=== PATIENT | female | born 1970 | race Caucasian/White ===

== ENCOUNTER 2022-02-25 11:15 | Outpatient (REF) | payer OTHER, SELFPAY ==
--- NOTE | ~2022-02-25 | XR_ITS ---
EXAMINATION: XR BILATERAL HIPS WITH AP PELVIS CLINICAL INFORMATION: Myalgias COMPARISON: None TECHNIQUE: AP view of the pelvis and single views of each hip were obtained. FINDINGS: The pelvic image demonstrate some probable early degenerative changes in the lower lumbar sacral spine. Mild sclerosis at the level of the pubic bone. Left SI joint is patent. The right SI joint is felt to be patent detailed 2 views of the right hip show the femoral head contour to be smooth. There is no bony erosion or osteopenia. Mild degenerative change likely in the region of the greater trochanter. Detailed 2 views of the left hip again demonstrate the femoral head contour to be smooth. Joint spaces fairly well-preserved though there may be some inferior joint space loss. Degeneration along the greater trochanter is noted. XR/XR hip BI w PEL1V IMPRESSION: No acute findings. Mild degenerative changes are noted
--- NOTE | ~2022-02-25 | XR_ITS ---
EXAMINATION: XR RIBS, LEFT CLINICAL INFORMATION: Pain COMPARISON: None TECHNIQUE: 3 detailed imaging views of the left RIBS and single view chest FINDINGS: The chest film does not show pneumothorax or effusion. Left lung is grossly clear. The cardiac silhouette is felt to be within normal limits. 3 detailed views of the left ribs does not demonstrate fracture. The rib appearance is within normal limits. XR/XR ribs LT min 3V w CXR1V IMPRESSION: No acute finding.
== END 2022-02-25 11:16 | disposition home or self-care (01) ==
LOC: HO.HMGCX 11:15
PROVIDERS: PCP Family Medicine; Visit Provider Family Medicine
DX: R07.81 Pleurodynia (principal); M25.551 Pain in right hip; T74.91XA Unspecified adult maltreatment, confirmed, initial encounter; M79.18 Myalgia, other site
CPT/HCPCS: 71101; 73521

== ENCOUNTER 2022-02-26 12:31 | Emergency (ER) | payer OTHER, SELFPAY ==
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
[2022-02-26 13:09] VITALS: BP 124/87; PULSE 83; RESP 16; TEMP 36.5; O2SAT 99; BMI 25.7
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
== END 2022-02-26 16:58 | disposition home or self-care (01) ==
PROVIDERS: Emergency Provider Student in an Organized Health Care Education/Training Program; PCP Family Medicine
DX: S20.211A Contusion of right front wall of thorax, initial encounter (principal); S00.31XA Abrasion of nose, initial encounter; S30.1XXA Contusion of abdominal wall, initial encounter; S70.12XA Contusion of left thigh, initial encounter; S70.11XA Contusion of right thigh, initial encounter; S40.022A Contusion of left upper arm, initial encounter; S40.021A Contusion of right upper arm, initial encounter; Y04.2XXA Assault by strike against or bumped into by another person, initial encounter; R51.9 Headache, unspecified; Y93.9 Activity, unspecified; Y92.019 Unspecified place in single-family (private) house as the place of occurrence of the external cause; Y99.9 Unspecified external cause status
CPT/HCPCS: 70450; 71250; 99283; 99284

== ENCOUNTER 2023-07-29 09:50 | Outpatient (AMB) | payer OTHER, SELFPAY ==
--- NOTE | 2023-07-29 10:02 | MHC.PC.OV ---
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 Pt notes pain from neck to her elbows. She notes hx of R shoulder arthritis. Pt reports meloxicam has not helped at all for her. Pt reports anxiety has been high. Recently gotten fired from her job. Patient?had?establish?a?diagnosis?of?ADHD?and?I?had?started?her?on?her?medications.??There?were?some?concerns?regarding?discrepancies?in?her?refills?and?this?was?discontinued. Discussed?with?her?today?that?I?would?be?willing?to?prescribe?Adderall?ER?20?mg?daily?and?she?will?need?close?follow-up. 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 1. Little interest or pleasure in doing things: more than half the days 2. Feeling down, depressed, or hopeless: more than half the days 3. Trouble falling or staying asleep, or sleeping too much: several days 4. Feeling tired or having little energy: nearly every day 5. Poor appetite or overeating: more than half the days 6. Feeling bad about yourself - or that you are a failure or have let yourself or your family down: several days 7. Trouble concentrating on things, such as reading the newspaper or watching television: nearly every day 8. Moving or speaking so slowly that other people could have noticed. Or the opposite - being so fidgety or restless that you have been moving around a lot more than usual: not at all 9. Thoughts that you would be better off or of hurting yourself in some way: not at all Total score: 14 68245 - PHQ-9 Billing: Yes Source: Developed by Drs. Epifanio Gomez, Reena Willard, Federico Javier and colleagues, with an educational brendan from [employer]. Thrive Questionnaire Date Thrive assessed: 07/29/23 I am a: Patient What is your living situation today?: I have a steady place to live Within the past 12 months, did the food you bought not last and you didn't have the money to get more?: Never true Within the past 12 months, did you worry whether your food would run out before you got money to buy more?: Never true Do you have trouble paying for medicines?: No Do you have trouble getting transportation to medical appointments?: No Do you have trouble paying your heating and electricity bill?: No Do you have trouble taking care of your child, family member or friend?: No Do you have trouble with day-to-day activities such as bathing, preparing meals, shopping, managing finances, etc.?: No Are you currently unemployed and looking for a job?: No Are you interested in more education?: No Please select the resources that you would like help with: None Currently or been in a relationship where the following occur: no concerns reported AUDIT C Alcohol Use Questionnaire (AUDIT-C) 1. How often do you have a drink containing alcohol?: Monthly or less 2. How many drinks containing alcohol do you have on a typical day when you are drinking?: 1 or 2 3. How often do you have six or more drinks on one occasion?: Never Total Score: 1 CHERRY-7 AMB Questionnaire CHERRY-7 Date CHERRY - 7 assessed: 07/29/23 Feeling nervous, anxious, or on edge: 2 = More than half the days Not being able to stop or control worryin = More than half the days Worrying too much about different things: 2 = More than half the days Trouble relaxin = Several days Being so restless that it is hard to sit still: 1 = Several days Becoming easily annoyed or irritable: 2 = More than half the days Feeling afraid as if something awful might happen: 0 = Not at all Total CHERRY-7 score (0-4 normal; 5-9 mild; 10-14 moderate; 15-21 severe): 10 Source: Developed by Drs. Epifanio Gomez, Reena Willard, Federico Javier and colleagues, with an educational brendan from [employer]. CHERRY-7 Assessment Billing CHERRY-7 Assessment Tool: CHERRY-7 Assessment 85120 Review of Systems Const Denies chills, Denies fatigue, Denies fever(s), Denies headache(s) and Denies weakness ENT Denies dizziness and Denies headache(s) Card Denies dyspnea Resp Denies cough, Denies dyspnea, Denies wheezing and Denies other (shortness of breath) Musc Details: R shoulder pain Denies numbness and Denies tingling Neuro Denies dizziness, Denies headache(s), Denies numbness, Denies tingling and Denies weakness Psych Reports anxiety and Reports depression Endo Denies fatigue Aller/Immun Denies wheezing Physical exam (Primary Care) Vital Signs: Last Vital Signs Pulse 75 07/29/23 10:16 Resp 17 07/29/23 10:16 BP 104/58 L 07/29/23 10:16 Pulse Ox 96 07/29/23 10:16 Oxygen Delivery Method Room Air 07/29/23 10:16 BMI result Body Mass Index 31.2 Tobacco/Smoking Status: Tobacco use Status Tobacco use date assessed 07/29/23 07/29/23 10:24 Patient Tobacco Use Status Current everyday Tobacco 07/29/23 10:24 Tobacco use type Cigarette 07/29/23 10:24 e-Cigarette/Vaping Use Never Used 07/29/23 10:04 PHQ-9: PHQ-9 Score PHQ-9: Total score 14 07/29/23 10:24 Thrive Assessment: Date of Thrive Assessment Date Thrive assessed 07/29/23 07/29/23 10:24 Currently or been in a relationship where the following occur: no concerns reported Const General: well developed; No acute distress Nutritional Appearance: well nourished Orientation/consciousness: patient oriented x3 HENMT Head: Yes normocephalic and Yes atraumatic Eyes General: appearance normal, both eyes and all related structures Pupils: Equal, round and reactive pupils present EOM: EOMs intact bilaterally Resp Effort & Inspection: normal respiratory effort Neuro General: patient oriented x3 and gait normal Cranial nerves: Yes Equal, round and reactive pupils present Psych Affect: normal affect Assessment and Plan Assessment & Plan (1) Right shoulder pain: Code(s): M25.511 - Pain in right shoulder Plan: Chronic?and?worsening?right?shoulder?pain.??Patient?notes?that?she?does?have?a?history?of?some?right?shoulder?arthritis. Exam?appears?muscular?and?likely?some?recurrent?muscle?and?tendon?strain Ibuprofen?800?mg?3?times?a?day?and?she?can?also?use?some?intermittent?Tylenol Will?start?physical?therapy Check?x-ray If?not?improving?will?refer?to?ortho (2) ADHD: Code(s): F90.9 - Attention-deficit hyperactivity disorder, unspecified type Plan: Patient?had?establish?a?diagnosis?of?ADHD?and?I?had?started?her?on?her?medications.??There?were?some?concerns?regarding?discrepancies?in?her?refills?and?this?was?discontinued. Discussed?with?her?today?that?I?would?be?willing?to?prescribe?Adderall?ER?20?mg?daily?and?she?will?need?close?follow-up. She?had?been?on?rather?high?doses?of?Adderall?from?her?prior?provider.??Will?reiterate?the?patient?that?I?will?not?be?increasing?her?dose. (3) Depression with anxiety: Code(s): F41.8 - Other specified anxiety disorders Plan: She?has?been?off?bupropion?and?clonidine.??I?have?refilled?these Will?ask?the?nurse?navigator?to?help?connect?her?with?a?therapist Orders: Orders PT Evaluation and Treatment Today M25.511 - Pain in right shoulder XR shoulder LT min 2V Today M25.511 - Pain in right shoulder Referrals Nurse Navigator Referral F41.8 - Other specified anxiety disorders Medications: New prednisone 40 mg (2 x 20 mg) PO DAILY 10 tabs 0RF 5 days dextroamphetamine-amphetamine 20 mg ER (Adderall XR) [employer] Verified. Partial Fill upon patient request. 20 mg PO QAM 30 caps 0RF 30 days Changed From bupropion HCl 150 mg PO BID To bupropion HCl 150 mg PO BID 60 tabs 2RF 30 days From cyclobenzaprine 5 mg PO TID PRN 14 tabs 0RF muscle spasm To cyclobenzaprine 5 mg PO BEDTIME PRN 5 tabs 0RF muscle spasm 5 days From ibuprofen 600 mg PO Q8H PRN 20 tabs 0RF pain To ibuprofen 800 mg PO Q8H PRN 90 tabs 1RF pain 30 days From clonidine HCl 0.1 mg PO BEDTIME To clonidine HCl 0.1 mg PO Q8H 90 tabs 0RF 30 days Coding Level of Care Code Est Pt Level 4 (93660) Diagnoses Right shoulder pain M25.511 ADHD F90.9 Depression with anxiety F41.8 Additional Codes CHERRY-7 Assessment Billing - CHERRY-7 Assessment Tool: CHERRY-7 Assessment 64618 ([id number])
[2023-07-29 10:16] VITALS: BP 104/58; PULSE 75; RESP 17; O2SAT 96; BMI 31.2
== END 2023-07-29 11:19 | disposition home or self-care (01) ==
PROVIDERS: PCP Family Medicine; Visit Provider Family Medicine
DX: M25.511 Pain in right shoulder (principal); F90.9 Attention-deficit hyperactivity disorder, unspecified type; F41.8 Other specified anxiety disorders
CPT/HCPCS: 99214

== ENCOUNTER 2023-08-05 10:26 | Outpatient (REF) | payer OTHER, SELFPAY ==
--- NOTE | ~2023-08-05 | XR_ITS ---
EXAMINATION: XR SHOULDER, RIGHT CLINICAL INFORMATION: Right shoulder pain. COMPARISON: None available. TECHNIQUE: AP external rotation, Grashey, scapular Y, and axillary views of the right shoulder. FINDINGS: Bulky calcification superior lateral aspect of the right humeral head. No fracture or dislocation. Visualized lung is clear. XR/XR shoulder RT min 2V IMPRESSION: Calcific tendinopathy right shoulder.
== END 2023-08-05 10:27 | disposition home or self-care (01) ==
LOC: HO.HMGCX 10:26
PROVIDERS: PCP Family Medicine; Visit Provider Family Medicine
DX: M25.511 Pain in right shoulder (principal)
CPT/HCPCS: 73030

== ENCOUNTER 2023-08-16 11:00 | Outpatient (RCR) | payer OTHER, SELFPAY ==
--- NOTE | 2023-08-09 14:35 | MHC.PT.EP ---
[facility] [place] [facility] [place] [facility] [place] [facility] [address] Elisa Miller [address] [phone] F: [phone] F: [phone] F: [phone] F: [phone] Physical Therapy Plan of Care Date of Evaluation: 08/09/23 Date of Surgery: n/a Diagnosis: pain in R shoulder Assessment: Patient is a 52 year old female presenting to PT with complaints of pain in her R shoulder. Pt reports onset of pain began about 20 years ago due to insidious onset. She presents today with impairments in pain, ROM, shoulder strength, posture. Pt's current occupation is none, with baseline physical activities including reaching, lifting, ADLs. Pt expresses correction goal of reducing pain, and is motivated to work towards this in PT. Clinical presentation today is most consistent with signs and sx associated with R shoulder pain and pt will benefit from skilled PT 2 week x 4 weeks to address the following problems and impairments noted upon evaluation: pain, ROM, shoulder strength, posture. These problems limit the patient with the following functional activities: reaching, lifting, ADLs. The prescribed treatment plan of care is medically necessary. Co-morbidities of none were identified and taken into considerations of plan of care. Pt was educated on HEP, role of PT, prognosis, POC. Frequency and Duration: The patient will be seen 2 x week x 4 weeks Short Term Goals: Pt will demonstrate improved R shoulder ROM equal B in 2 weeks. Pt will demonstrate improved R shoulder MMT strength by 1/3 grade in 2 weeks. Pt will demonstrate improved postural awareness by sitting with biomechanically correct posture without cues throughout session to improve overall postural function in 2 weeks. 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 Pt will demonstrate ability to complete ADLs including dressing with min to no pain in 4 weeks for return to PLOF. 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 Treatment Plan: Modalities to reduce pain, spasms and effusion. Manual therapy to restore motion and function. Therapeutic exercise to improve strength and flexibility. Neuromuscular re-education for posture and balance. Therapeutic activities to return to functional activities of daily living. Electronically signed by: Chacha Crawford, PT, DPT, ATC Please sign and return to therapist. Thank you for your referral.
--- NOTE | 2023-09-22 08:22 | MHC.PT.DC ---
[facility] [place] Office [place] Office [place] Office [address] Elisa Miller [address] [facility] [phone] F: [phone] F: [phone] F: [phone] F: [phone] Physical Therapy Discharge Report Diagnosis: pain in R shoulder Date of Surgery: n/a Date of Evaluation: 08/09/23 Date of Discharge: 09/22/23 Treatments to Date: 2 Cancellations to Date: 0 No Shows to Date: 1 Discharge Status: Patient Elected to Stop Visit Non-compliance Discharge Summary: Pt no showed her last appointment and has not reached out in >30 days and therefore to be d/c per policy. Electronically signed by: Chacha Crawford, PT, DPT, ATC Please sign and return to therapist. Thank you for your referral.
== END 2023-09-22 08:22 | disposition home or self-care (01) ==
LOC: HO.PTCHIC 11:00
PROVIDERS: PCP Family Medicine; Visit Provider Family Medicine
DX: M25.511 Pain in right shoulder (principal)
CPT/HCPCS: 97110; 97161

== ENCOUNTER 2023-09-06 11:42 | Outpatient (AMB) | payer OTHER, SELFPAY ==
[2023-09-06 12:04] VITALS: BP 120/76; PULSE 87; O2SAT 99; BMI 30.4
--- NOTE | 2023-09-06 12:04 | MHC.PC.OV ---
Vital Signs 09/06/23 12:04 Height 5 ft 4 in Weight 177 lb 2 oz BMI 30.4 BP 120/76 Blood Pressure Location Lt brachial Position Sitting Pulse 87 Pulse Source Pulse Oximeter Pulse Oximetry (%) 99 Oxygen Delivery Method Room Air Intake Visit Reasons: Annual exam Intake Note: Patient is here for her physical, and right shoulder pain, on/off for years. Allergies No Known Allergies Allergy (Verified 09/06/23 12:09) Tobacco use date assessed: 09/06/23 Dental Screening Dental Screen Date: 09/06/23 Did you have a dental visit in the last 12 months?: No Did you have a dental problem in the last 6 months where you did not have access to dental care?: No Was dental information given to patient?: Patient has dentist HPI Annual exam HPI Details 52 y/o female presents for an extended exam with f/u labs and health maintenance. No recent labs to review. Pt reports she is post menopausal and has not had a bone density test yet. PFSH Medical History Depression Anxiety ADHD Social History Housing: Apartment Patient Tobacco Use Status: Current everyday Tobacco user Tobacco use type: Cigarette Cigarettes Per Day: 5 e-Cigarette/Vaping Use: Never Used Second Hand Smoke Exposure: No service: No Current occupational status: unemployed Current occupational exposures/hazards: No Cognitive needs: No Hearing needs: No Vision needs: No Questionnaire Thrive Questionnaire Date Thrive assessed: 07/29/23 CHERRY-7 AMB Questionnaire CHERRY-7 Date CHERRY - 7 assessed: 07/29/23 Source: Developed by Drs. Epifanio Gomez, Reena Willard, Federico Javier and colleagues, with an educational brendan from [employer]. Review of Systems Const Denies chills, Denies fatigue, Denies fever(s), Denies headache(s) and Denies weakness Eyes Denies change in vision ENT Denies dizziness, Denies headache(s), Denies hearing loss, Denies nasal congestion, Denies sinus pain, Denies sinus pressure and Denies sore throat Card Denies chest pain, Denies lightheadedness, Denies dyspnea and Denies other (palpitations) Resp Denies cough, Denies dyspnea and Denies wheezing GI Denies abdominal pain, Denies melena, Denies hematochezia, Denies change in bowel habits, Denies dyspepsia and Denies nausea Denies hematuria and Denies dysuria Musc Denies abnormal gait, Denies myalgias, Denies arthralgias, Denies numbness and Denies tingling Skin/Breast Denies rash, Denies unusual bruising and Denies wounds Neuro Denies abnormal gait, Denies dizziness, Denies headache(s), Denies memory loss, Denies numbness, Denies Sensory deficit (Neuro), Denies tingling and Denies weakness Psych Denies anxiety, Denies depression and Denies memory loss Endo Denies cold intolerance, Denies fatigue, Denies heat intolerance, Denies polydipsia and Denies polyuria Saurav/Lymph Denies easy bleeding and Denies easy bruising Aller/Immun Denies wheezing Physical exam (Primary Care) Vital Signs: Last Vital Signs Pulse 87 09/06/23 12:04 BP 120/76 09/06/23 12:04 Pulse Ox 99 09/06/23 12:04 Oxygen Delivery Method Room Air 09/06/23 12:04 BMI result Body Mass Index 30.4 Tobacco/Smoking Status: Tobacco use Status Tobacco use date assessed 09/06/23 09/06/23 12:14 Patient Tobacco Use Status Current everyday Tobacco 09/06/23 12:14 Tobacco use type Cigarette 09/06/23 12:14 e-Cigarette/Vaping Use Never Used 09/06/23 12:14 Thrive Assessment: Date of Thrive Assessment Date Thrive assessed 07/29/23 09/06/23 12:14 Const General: no acute distress, well developed, alert and awake Nutritional Appearance: well nourished Orientation/consciousness: patient oriented x3 HENMT Head: Yes normocephalic and Yes atraumatic Ears: hearing grossly normal bilaterally and TM's normal bilaterally General nose exam: Normal external nose present and Normal nares present Mouth: Normal oral and palatal mucosa present and moist mucous membranes Teeth and gingiva: dentition normal Throat: Yes posterior oropharynx normal Eyes General: appearance normal, both eyes and all related structures Pupils: Equal, round and reactive pupils present and Pupil accommodation reflex normal EOM: EOMs intact bilaterally Neck Neck: Yes normal visual inspection, Yes no lymphadenopathy and Yes trachea midline Thyroid: Thyroid normal Carotids: no bruits Lymphatic: no lymphadenopathy noted Chest Chest palpation & inspection: normal inspection of the chest Resp Effort & Inspection: normal respiratory effort Auscultation: clear to auscultation bilaterally Cardio Rate: regular rate Rhythm: regular rhythm Heart sounds: S1 normal heart sound present, S2 normal heart sound present, no gallops, no murmurs and no rubs Bruits: no abdominal aortic bruits and no carotid bruits GI Palpation (GI): No Abdominal aortic bruit present, Soft to palpation, nontender, No hepatosplenomegaly present and No Rebound tenderness present Auscultation: normal bowel sounds General: Yes no CVA tenderness Back/Spine/Pelvis Back: no CVA tenderness Cervical Spine: cervical ROM normal and No Cervical spine tenderness Thoracic/Lumbar Spine: thoraco-lumbar ROM normal, No pain with thoraco-lumbar ROM, No thoracic spinal tenderness and No lumbar spinal tenderness Skin Lesions: no lesions Rashes: no rashes Trauma: no lacerations or abrasions Wounds: no wounds Nails: normal Neuro General: patient oriented x3 Cranial nerves: Yes Equal, round and reactive pupils present Cognition (Neuro): normal cognition Gait exam (Neuro): Normal gait present Motor exam (neuro): 5/5 motor strength present throughout Sensory Exam: No Sensory deficit (Neuro) Deep tendon reflexes (DTR's): Right patellar reflex intensity grade: 2+ and Left patellar reflex intensity grade: 2+ Extrem General: Yes normal to inspection and No edema Psych Appearance: grossly normal Affect: normal affect Attitude: cooperative Thought process: Normal thought process present Assessment and Plan Assessment & Plan (1) ADHD: Code(s): F90.9 - Attention-deficit hyperactivity disorder, unspecified type Plan: Had?been?on?Adderall?and?we?resumed?this. However,?she?notes?that?her?pharmacy?said?she?needs?a?prior?authorization.??Will?have?medical?surgical dental assistant?look?into?this. (2) Right shoulder pain: Code(s): M25.511 - Pain in right shoulder Plan: Right?shoulder?pain?and?x-ray?shows?calcific?tendinosis She?has?significantly?decreased?range?of?motion?with?only?90?degrees?of?abduction?and?can?not?raise?further?with?active?or?passive?ROM Referred?to?Ortho (3) Screening for colon cancer: Code(s): Z12.11 - Encounter for screening for malignant neoplasm of colon Plan: Colonoscopy?age?45?at?[facility] – [place] Requesting?report (4) Breast cancer screening by mammogram: Code(s): Z12.31 - Encounter for screening mammogram for malignant neoplasm of breast Plan: Last?mammogram?more?than?2?years?ago. Ordered?mammogram No?family?history?of?breast?cancer?and?patient?would?like?to?have?screening?about?every?other?year. (5) Screening for cervical cancer: Code(s): Z12.4 - Encounter for screening for malignant neoplasm of cervix Plan: referred to [facility] (6) Obesity (BMI 30.0-34.9): Code(s): E66.9 - Obesity, unspecified Plan: Patient?would?like?to?try?Webrandonvjosh. Ordered (7) Normal physical exam: Code(s): Z00.00 - Encounter for general adult medical examination without abnormal findings Plan: 52-year-old?female?presents?for?an?extended?exam Orders: Orders Lipid Panel Today Z00.00 - Encounter for general adult medical examination without abnormal findings UA and rflx microscopic Today Z00.00 - Encounter for general adult medical examination without abnormal findings TSH reflex Free T4 Today Z00.00 - Encounter for general adult medical examination without abnormal findings MM tomosynthesis screening BI Today F90.9 - Attention-deficit hyperactivity disorder, unspecified type, Z12.31 - Encounter for screening mammogram for malignant neoplasm of breast Comprehensive [place]. Panel Fast Today Z00.00 - Encounter for general adult medical examination without abnormal findings Complete Blood Count Auto Diff Today Z00.00 - Encounter for general adult medical examination without abnormal findings Microalbumin, Random (w Creat) Today I10 - Essential (primary) hypertension Drug Screen Urine Today F90.9 - Attention-deficit hyperactivity disorder, unspecified type Referrals Orthopedics Referral M25.511 - Pain in right shoulder, M75.31 - Calcific tendinitis of right shoulder [facility] Referral Z12.4 - Encounter for screening for malignant neoplasm of cervix Medications: New semaglutide (weight loss) (Nathaly) administer weeks 1 through 4 of therapy 0.25 mg (0.5 mL) subcut QWEEK 2 mL 2RF 28 days E66.9 - Obesity, unspecified Coding Level of Care Code Est Pt Level 4 (87368) Diagnoses ADHD F90.9 Right shoulder pain M25.511 Screening for colon cancer Z12.11 Breast cancer screening by mammogram Z12.31 Screening for cervical cancer Z12.4 Obesity (BMI 30.0-34.9) E66.9 Normal physical exam Z00.00
== END 2023-09-06 13:04 | disposition home or self-care (01) ==
PROVIDERS: PCP Family Medicine; Visit Provider Family Medicine
DX: Z00.00 Encounter for general adult medical examination without abnormal findings (principal); F90.9 Attention-deficit hyperactivity disorder, unspecified type; E66.9 Obesity, unspecified; Z68.30 Body mass index [BMI] 30.0-30.9, adult; M25.511 Pain in right shoulder; Z12.11 Encounter for screening for malignant neoplasm of colon; Z12.31 Encounter for screening mammogram for malignant neoplasm of breast
CPT/HCPCS: 99213; 99396

== ENCOUNTER 2023-09-20 08:57 | Outpatient (AMB) | payer OTHER, SELFPAY ==
[2023-09-20 08:59] VITALS: BMI 30.4
--- NOTE | 2023-09-20 08:59 | A.OFFVIS_ITS ---
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 Patient reports her pain has been going on for about 20 years and is a 7 on the 1-10 pain scale with . She denies numbness, tingling, and surgery. She has gone to formal physical therapy which aggravated her pain. She reports weakness when lifting her right hand above shoulder height. The patient states that at times her right arm show week that she has to lift it with her left arm. She has had injections in the past which gave her minimal relief. She has tried Tylenol and anti-inflammatory medicines which gave her minimal relief. Allergies No Known Allergies Allergy (Verified 09/20/23 09:03) Medication List - Last Reconciled 09/20/23 by Jorge Crystal MD bupropion HCl 150 mg PO BID 30 days clonidine HCl 0.1 mg PO Q8H 30 days dextroamphetamine-amphetamine 20 mg ER (Adderall XR) 20 mg PO QAM 30 days ibuprofen 800 mg PO Q8H PRN 30 days semaglutide (weight loss) (Wegovy) 0.25 mg (0.5 mL) subcut QWEEK 28 days PFS Medical History (Updated 09/20/23 @ 09:06 by Mya Sol CMA) Cystocele with prolapse (~2014) Depression Anxiety ADHD Surgical History (Updated 09/20/23 @ 09:06 by Mya Sol CMA) History of tonsillectomy (~1985) Social History Housing: Apartment Patient Tobacco Use Status: Current everyday Tobacco user Tobacco use type: Cigarette Cigarettes Per Day: 5 e-Cigarette/Vaping Use: Never Used Second Hand Smoke Exposure: No service: No Current occupational status: unemployed Current occupational exposures/hazards: No Cognitive needs: No Hearing needs: No Vision needs: No Physical Exam Vital Signs: BMI result Body Mass Index 30.4 Const Other: Well-nourished well-developed very friendly female awake alert and oriented x3 in no acute distress Extrem Other: Bilateral upper extremity examination shows good capillary refill, no skin lesions noted, normal sensation light touch Right shoulder examination shows decreased range of motion when compared to her left shoulder, 4/5 strength with, positive impingement signs, tenderness over her acromioclavicular joint, no instability Results Reviewed Results Reviewed: X-rays of the patient's right shoulder show severe acromioclavicular joint narrowing, a type 2 acromion, a small calcium deposit within the supraspinatus tendon Assessment & Plan Assessment & Plan (1) Right shoulder pain: Code(s): M25.511 - Pain in right shoulder Plan Ms. Oh presents with progressively worsening right shoulder pain and weakness due to impingement syndrome and possible full-thickness rotator cuff tearing. Thus, I will send the patient for an MRI of her right shoulder for further evaluation. If she does have a full-thickness rotator cuff tear I will recommend surgical repair to optimize her future functional level. I will see her back once the MRI is completed to discuss the findings and treatment options. Feel free to call me at any time should questions regarding her orthopedic management arise. Thank you very much for asking me to see this very friendly patient. I spent 22 minutes in reviewing the patient's records and imaging studies, seeing the patient and documenting in the medical record. Orders: Orders MR shoulder RT wo con Today M25.511 - Pain in right shoulder Coding Level of Care Code New Pt Level 2 (51810) Diagnoses Right shoulder pain M25.511
== END 2023-09-20 09:27 | disposition home or self-care (01) ==
PROVIDERS: PCP Family Medicine; Visit Provider Orthopaedic Surgery
DX: M25.511 Pain in right shoulder (principal)
CPT/HCPCS: 99202

== ENCOUNTER → 2023-09-20 08:57 | Outpatient (BNVA) | payer OTHER, SELFPAY | PROVIDERS: PCP Family Medicine; Visit Provider Orthopaedic Surgery | DX: M25.511 Pain in right shoulder (principal) | CPT/HCPCS: 99202 ==

== ENCOUNTER 2023-09-22 08:55 | Outpatient (REF) | payer OTHER, SELFPAY ==
--- NOTE | ~2023-09-22 | MM_ITS ---
EXAMINATION: BONE DENSITOMETRY CLINICAL INDICATION: Age-related osteoporosis without current pathological fracture. COMPARISON: This is the patient's baseline examination. TECHNIQUE: Using a [employer] DXA System (software version: 13.1) manufactured by [employer], dual-energy x-ray absorptiometry was performed of the lumbar spine and left hip. The images are of good technical quality. Summary results are attached. FINDINGS: LEFT FEMUR, NECK: BMD 0.670 g/cm2, Z-score -2.1, T-score -2.7, osteoporosis. LEFT FEMUR, TOTAL: BMD 0.695 g/cm2, Z-score -2.3, T-score -2.5, osteoporosis. AP SPINE L1-L4: BMD 0.895 g/cm2, Z-score -2.3, T-score -2.4, osteopenia. IDENTIFIED RISK FACTORS: Low calcium intake, menopause, tobacco use (current smoker). HISTORY OF FRACTURE: None listed. MEDICATIONS: None listed. MM/XR DEXA axial skeleton IMPRESSION: 1. DIAGNOSIS: Osteoporosis based on the lowest T-score value of -2.7 in the femoral neck applying World Health Organization criteria. 2. 10-YEAR FRACTURE RISK PREDICTION, FRAX: According to the guidelines, FRAX calculation should only be performed on patients in the osteopenia bone density category. Therefore, FRAX was not performed on this patient.? 3. Treatment Recommendations: NOF guidelines recommend consideration for treatment in postmenopausal women and men age 50 and older presenting with the following: -A hip or vertebral (clinical or morphometric) fracture. -T-score less than or equal to -2.5 at the femoral neck or spine after appropriate evaluation to exclude secondary causes. -Low bone mass at the hip or spine and a 10-year fracture probability by FRAX of greater than or equal to 3% for hip fracture or greater than or equal to 20% for major osteoporotic fracture based on the [place] adapted WHO algorithm. 4. Other Recommendations: All treatment decisions require clinical judgment and consideration of individual patient factors, including patient preferences, comorbidities, previous drug use, risk factors not captured in the FRAX model (e.g. frailty, falls, vitamin D deficiency, increased bone turnover, interval significant decline in bone density) and possible under or overestimation of fracture risk by FRAX. Additional medical evaluation for secondary cause of low bone mineral density may be appropriate. FUTURE SCAN RECOMMENDATION: People with diagnosed cases of osteoporosis or at high risk for fracture should have regular bone mineral density tests. For patients eligible for Medicare, routine testing is allowed once every 2 years. The testing frequency can be increased to one year for patients who have rapidly progressing disease, those who are receiving or discontinuing medical therapy to restore bone mass, or have additional risk factors.
== END 2023-09-22 08:56 | disposition home or self-care (01) ==
LOC: HO.MAMMO 08:55
PROVIDERS: Visit Provider Family Medicine
DX: Z12.31 Encounter for screening mammogram for malignant neoplasm of breast (principal); Z13.820 Encounter for screening for osteoporosis; Z78.0 Asymptomatic menopausal state; M81.0 Age-related osteoporosis without current pathological fracture
CPT/HCPCS: 77063; 77067; 77080

== ENCOUNTER → 2023-09-22 09:15 | Outpatient (BNV) | payer OTHER, SELFPAY | PROVIDERS: Visit Provider Radiology Diagnostic Radiology | DX: Z12.31 Encounter for screening mammogram for malignant neoplasm of breast (principal) | CPT/HCPCS: 77063; 77067 ==

== ENCOUNTER 2023-09-22 10:11 | Outpatient (REF) | payer OTHER, SELFPAY ==
[2023-09-22 13:09] LABS: Amphetamine Screen Urine Not Detected (Not Detect); Barbiturates, Urine Not Detected (Not Detect); Benzodiazepines Screen Urine Not Detected (Not Detect); Cannabinoid Screen Urine POSITIVE (Not Detect); Cocaine Screen Urine Not Detected (Not Detect); Fentanyl, urine Not Detected (Not Detect); Opiate Screen Urine Not Detected (Not Detect); Phencyclidine Screen Urine Not Detected (Not Detect)
[2023-09-22 13:11] LABS: MANUAL DIFF FLAG NO
[2023-09-22 13:20] LABS: Basophils Percent Auto 0.5 % (0-2); Eosinophils Absolute Auto 0.1 X10*3/uL (0.0-0.4); Hematocrit 39.4 % (37.0-47.0); Imm Gran Abs Auto 0.02 X10*3/uL (0.00-0.03); Imm Gran Pct Auto 0.3 % (0.0-0.4); Lymphocytes Absolute Auto 2.2 X10*3/uL (1.2-4.9); Lymphocytes Percent Auto 37.3 % (20-40); Mean Corpuscular Hemoglobin 32.1 pg (27.0-33.0); Mean Corpuscular Volume 97.3 fL (80.0-98.0); Mean Platelet Volume 11.1 fL (9.4-12.3); Monocytes Absolute Auto 0.5 X10*3/uL (0.1-1.2); Monocytes Percent Auto 8.2 % (2-11); Neutrophils Absolute Auto 3.1 x10*3/uL (2.0-8.3); Neutrophils Percent Auto 52.7 % (45-73); Platelet Count 262 X10*3/uL (160-400); Red Blood Count 4.05 X10*6/uL (4.20-5.50); Red Cell Distribution Width 12.5 % (11.0-16.0); White Blood Count 5.9 X10*3/uL (4.8-10.8)
[2023-09-22 13:22] LABS: Appearance Urine Clear; Color Urine Yellow; Glucose Urine UA Negative (Negative); Leukocyte Esterase Urine Trace (Negative); Nitrite Urine Positive (Negative); PH 5.5 (5.0-9.0); Specific Gravity - Urine 1.025 (1.005-1.025); UMIC TRIGGER UA YES; Urine Blood Small (1+) (Negative); Urine Ketones Trace mg/dL (Negative); Urine Protein Negative (Neg-Trace)
[2023-09-22 13:32] LABS: Bacteria Urine 4+ (None Seen); Hyaline Casts Urine 0-2 /LPF (0-2); RBC Urine 0-2 /HPF (0-2); Squamous Epithelial Cell Urine 0-2 /HPF (0-2)
[2023-09-22 13:47] LABS: Alanine Aminotransferase 13 U/L (0-31); Albumin Level 4.4 g/dL (3.5-5.0); Alkaline Phosphatase 99 U/L (39-117); Anion Gap 12 (12-20); Aspartate Amino Transferase 18 U/L (5-31); Bilirubin Total 0.3 mg/dL (0.0-1.0); Blood Urea Nitrogen 20 mg/dL (9-16); Calcium 9.5 mg/dL (8.4-10.2); Carbon Dioxide 26 mmol/L (22-29); Chloride 105 mmol/L (96-108); Cholesterol 229 mg/dL (<200); Estimated Glomerular Filt Rate > 60; Glucose Fasting 90 mg/dL (60-99); HDL Cholesterol 56 mg/dL (>40); LDL Cholesterol Calculated 142 mg/dL (<100); Potassium 4.5 mmol/L (3.3-5.1); Sodium 138 mmol/L (135-145); Total Protein 7.3 g/dL (6.5-8.0); Triglycerides 157 mg/dL (<150)
[2023-09-22 13:52] LABS: TSH reflex Free T4 0.94 uIU/mL (0.32-4.0)
[2023-09-22 14:02] LABS: Creatinine Urine 158.47 mg/dL; Microalbum/Creatinine Ratio Ur 6.3 ug/mg cr (<30)
== END 2023-09-22 10:12 | disposition home or self-care (01) ==
LOC: HO.HMGCLDS 10:11
PROVIDERS: PCP Family Medicine; Visit Provider Family Medicine
DX: Z00.00 Encounter for general adult medical examination without abnormal findings (principal); I10 Essential (primary) hypertension; F90.9 Attention-deficit hyperactivity disorder, unspecified type
CPT/HCPCS: 80053; 80061; 80307; 81001; 81003; 82043; 82570; 84443; 85025

== ENCOUNTER 2023-10-27 07:35 | Outpatient (REF) | payer OTHER, SELFPAY ==
[2023-11-03 23:29] LABS: HPV mRNA E6/E7 rflx Not Detected (Not Detected)
== END 2023-10-27 07:36 | disposition home or self-care (01) ==
LOC: HO.LNP 07:35
PROVIDERS: PCP Family Medicine; Visit Provider Obstetrics & Gynecology
DX: Z01.419 Encounter for gynecological examination (general) (routine) without abnormal findings (principal)
CPT/HCPCS: 87624; 88142; 99386

== ENCOUNTER 2023-10-27 07:35 | Outpatient (AMB) | payer OTHER, SELFPAY ==
[2023-10-27 07:37] VITALS: BP 108/60; BMI 31.9
--- NOTE | 2023-10-27 07:37 | A.OFFVIS_ITS ---
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 No complaints. Last Pap/HPV was 5 years ago within normal, reports not available Last Mammogram was in 10/08 BI-RADS 1 Last colonoscopy was 8 years ago, the recommendation according to the patient was to repeat in 10 years [facility] Medical History Ectopic Cystocele with prolapse (~2014) Depression Anxiety ADHD Surgical History History of tonsillectomy (~1985) Social History Housing: Apartment Alcohol intake: current Alcohol intake frequency: a few times a week Patient Tobacco Use Status: Current everyday Tobacco user Tobacco use type: Cigarette Cigarettes Per Day: 5 e-Cigarette/Vaping Use: Never Used Second Hand Smoke Exposure: No service: No Current occupational status: unemployed Current occupational exposures/hazards: No Sexually active: Yes Sexual orientation: Straight/Heterosexual Gender identity: Female Cognitive needs: No Hearing needs: No Vision needs: No Female Reproductive History Menstrual Menopause type: natural Total pregnancies: 7 Full term: 3 Number of Living Children: 3 Ab spontaneous: 3 Ectopics: 1 Date of Mammogram: 09/22/23 Date of last Bone Density Screenin09/22/23 Review of Systems Const All systems reviewed & are unremarkable except as noted in HPI and below Card Reports as per HPI Resp Reports as per HPI GI Reports as per HPI and Reports no additional complaints Reports as per HPI Physical Exam Vital Signs: Last Vital Signs BP 108/60 10/27/23 07:37 BMI result Body Mass Index 31.9 Const General: cooperative, healthy appearing and comfortable Chest Chest palpation & inspection: normal inspection of the chest and normal palpation of entire chest wall Breast/axilla inspection: normal inspection of the breasts and normal inspection of the axillae Breast/axilla palpation: normal palpation of the breasts, normal palpation of the axillae and no axillary lymphadenopathy Resp Effort & Inspection: normal respiratory effort Auscultation: clear to auscultation bilaterally Percussion: percussion normal Cardio Palpation: normal PMI Rate: regular rate Rhythm: regular rhythm Heart sounds: no murmurs and no rubs Peripheral pulses: Peripheral pulses 2+ throughout GI Inspection: Yes normal to inspection Palpation (GI): Soft to palpation, nontender, no guarding, not rigid and No hepatosplenomegaly present Percussion: Yes normal to percussion Auscultation: normal bowel sounds Rectal Exam - Female: deferred General: Yes bladder normal to palpation External Female Exam: No lesion Speculum Exam - Vagina: normal appearance of the vagina, normal palpation, normal vaginal discharge and not erythematous Speculum Exam - Cervix: normal appearance of the cervix and normal palpation Bimanual exam- vagina & uterus: normal bimanual exam, normal palpation, uterine size normal, bladder normal to palpation, consistency normal and normal palpation Bimanual Exam- Adnexa, other: normal adnexae, no masses and no tenderness Assessment & Plan Assessment & Plan (1) Well woman exam: Code(s): Z01.419 - Encounter for gynecological examination (general) (routine) without abnormal findings Plan: Co testing done. Counseled the patient about the recommended dietary allowance of 1200 mg of Calcium & 600 IU of vitamin D. Instructions given the patient to schedule next screening Mammogram in 10/09. The patient was instructed to perform monthly self-breast exams and schedule annual exam in a year. All questions answered and the patient verbalized understanding. Coding Level of Care Code New Pt Prev Care 40-64y(33177) Diagnoses Well woman exam Z01.419
== END 2023-10-27 08:24 | disposition home or self-care (01) ==
PROVIDERS: PCP Family Medicine; Visit Provider Obstetrics & Gynecology
DX: Z01.419 Encounter for gynecological examination (general) (routine) without abnormal findings (principal)
CPT/HCPCS: 99386

== ENCOUNTER 2024-04-13 10:38 | Outpatient (AMB) | payer OTHER, SELFPAY ==
--- NOTE | 2024-04-13 10:54 | A.OFFPC_ITS ---
Vital Signs 04/13/24 10:56 Height 5 ft 4 in Weight 170 lb 2 oz BMI 29.2 BP 100/60 Blood Pressure Location Lt brachial Position Sitting Respiration 12 Pulse 81 Pulse Source Pulse Oximeter Temp 97.7 F Temp Source Oral Pulse Oximetry (%) 96 Oxygen Delivery Method Room Air Intake Visit Reasons: f/u hypercholesterolemia & ADHD/WT/NEEDS PHQ9 Intake Note: follow up for phq9 adhd hypercholesterolemia Allergies No Known Allergies Allergy (Verified 04/13/24 10:55) Medication List - Last Reconciled 04/13/24 by Hieu Tobar MD alendronate 70 mg PO QWEEK 28 days bupropion HCl SR 150 mg PO BID 30 days clonidine HCl 0.1 mg PO Q8H 30 days dextroamphetamine-amphetamine 10 mg (Adderall) 10 mg PO DAILY 30 days dextroamphetamine-amphetamine 20 mg ER (Adderall XR) 20 mg PO QAM 30 days ibuprofen 800 mg PO Q8H PRN 30 days semaglutide (weight loss) (Wegovy) 0.25 mg (0.5 mL) subcut QWEEK 28 days Tobacco use date assessed: 09/06/23 Dental Screening Dental Screen Date: 09/06/23 HPI f/u hypercholesterolemia & ADHD/WT/NEEDS PHQ9 HPI Details 53 y/o female presents to f/u hyperchole sterolemia, ADHD, weight. Had advised lifestyle changes for her lipids. Hx of ADHD and is on Adderall XR 20mg daily. Has lost some weight and pt notes wegovy has been helping. Continues adderall as prescribed. Denies any issues with increased anxiety, difficulty sleeping, appetite issues. PHQ-9 6 today. [facility] Medical History Ectopic Cystocele with prolapse (~2014) Depression Anxiety ADHD Surgical History History of tonsillectomy (~1985) Social History Housing: Apartment Alcohol intake: current Alcohol intake frequency: a few times a week Patient Tobacco Use Status: Current everyday Tobacco user Tobacco use type: Cigarette Cigarettes Per Day: 5 e-Cigarette/Vaping Use: Never Used Second Hand Smoke Exposure: No service: No Current occupational status: unemployed Current occupational exposures/hazards: No Sexual orientation: Straight/Heterosexual Gender identity: Female Cognitive needs: No Hearing needs: No Vision needs: No Questionnaire PHQ-9 Over the last 2 weeks, how often have you been bothered by any of the following problems? 1. Little interest or pleasure in doing things: not at all 2. Feeling down, depressed, or hopeless: not at all 3. Trouble falling or staying asleep, or sleeping too much: not at all 4. Feeling tired or having little energy: several days 5. Poor appetite or overeating: several days 6. Feeling bad about yourself - or that you are a failure or have let yourself or your family down: several days 7. Trouble concentrating on things, such as reading the newspaper or watching television: nearly every day 8. Moving or speaking so slowly that other people could have noticed. Or the opposite - being so fidgety or restless that you have been moving around a lot more than usual: not at all 9. Thoughts that you would be better off or of hurting yourself in some way: not at all Total score: 6 Depression Screening Interpretation: Positive Depression Screening Done: Yes 34576 - PHQ-9 Billing: Yes Source: Developed by Drs. Epifanio Gomez, Reena Willard, Federico Javier and colleagues, with an educational brendan from [employer]. Thrive Questionnaire Date Thrive assessed: 07/29/23 AUDIT C Alcohol Use Questionnaire (AUDIT-C) 2. How many drinks containing alcohol do you have on a typical day when you are drinking?: 1 or 2 3. How often do you have six or more drinks on one occasion?: Never Total Score: 0 CHERRY-7 AMB Questionnaire CHERRY-7 Date CHERRY - 7 assessed: 07/29/23 Source: Developed by Drs. Epifanio Gomez, Federico Dodge and colleagues, with an educational brendan from [employer]. Review of Systems Const Denies chills, Denies fatigue, Denies fever(s), Denies headache(s) and Denies weakness ENT Denies dizziness and Denies headache(s) Card Denies dyspnea Resp Denies cough, Denies dyspnea, Denies wheezing and Denies other (shortness of breath) Musc Denies numbness and Denies tingling Neuro Denies dizziness, Denies headache(s), Denies numbness, Denies tingling and Denies weakness Psych Denies anxiety and Denies depression Endo Denies fatigue Aller/Immun Denies wheezing Physical exam (Primary Care) Vital Signs: Last Vital Signs Temp 97.7 F 04/13/24 10:56 Pulse 81 04/13/24 10:56 Resp 12 04/13/24 10:56 BP 100/60 04/13/24 10:56 Pulse Ox 96 04/13/24 10:56 Oxygen Delivery Method Room Air 04/13/24 10:56 BMI result Body Mass Index 29.2 Tobacco/Smoking Status: Tobacco use Status Tobacco use date assessed 09/06/23 04/13/24 11:00 Patient Tobacco Use Status Current everyday Tobacco 04/13/24 11:00 Tobacco use type Cigarette 04/13/24 11:00 e-Cigarette/Vaping Use Never Used 04/13/24 11:00 Depression Screening Interpretation: Positive Thrive Assessment: Date of Thrive Assessment Date Thrive assessed 07/29/23 04/13/24 11:00 Const General: well developed; No acute distress Nutritional Appearance: well nourished Orientation/consciousness: patient oriented x3 HENMT Head: Yes normocephalic and Yes atraumatic Eyes General: appearance normal, both eyes and all related structures Pupils: Equal, round and reactive pupils present EOM: EOMs intact bilaterally Resp Effort & Inspection: normal respiratory effort Auscultation: clear to auscultation bilaterally Cardio Rate: regular rate Rhythm: regular rhythm Heart sounds: S1 normal heart sound present, S2 normal heart sound present, no gallops, no murmurs and no rubs Neuro General: patient oriented x3 and gait normal Cranial nerves: Yes Equal, round and reactive pupils present Psych Affect: normal affect Assessment and Plan Assessment & Plan (1) Hypercholesterolemia: Code(s): E78.00 - Pure hypercholesterolemia, unspecified Plan: Patient?has?had?elevated?LDL?cholesterol. However?she?has?lost?at?least?16?lb?since?last?visit Due?to?recheck?lipids. Can?follow-up?by?telemedicine (2) Depression with anxiety: Code(s): F41.8 - Other specified anxiety disorders Plan: Stable?on?bupropion?and?clonidine Continue?current?medication (3) ADHD: Code(s): F90.9 - Attention-deficit hyperactivity disorder, unspecified type Plan: Medication?is?efficacious No?adverse?effects? such?as?worsening?anxiety,?appetite?suppression?or?sleep?disturbance. 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 (4) Obesity: Code(s): E66.9 - Obesity, unspecified Plan: Patient?has?lost?about?16?lb.??She?says?she?has?lost?more?than?this?an d?regained?some?as?she?has?been?unable?to?get?Wegovy?again. Will?try?sending?this?to?her?pharmacy?again.??If?unable?to?get?it?there,?I?will? send?it?elsewhere. Orders: Orders Comprehensive [place]. Panel Fast Today Z00.00 - Encounter for general adult medical examination without abnormal findings Lipid Panel Today Z00.00 - Encounter for general adult medical examination without abnormal findings Medications: Changed From semaglutide (weight loss) (Wegovy) administer weeks 1 through 4 of therapy 0.25 mg (0.5 mL) subcut QWEEK 28 days 2 mL 2RF E66.9 - Obesity, unspecified To semaglutide (weight loss) (Wegovy) 0.5 mg subcut QWEEK 28 days 4 mL 2RF E66.9 - Obesity, unspecified Coding Level of Care Code Est Pt Level 3 (63923) Diagnoses Hypercholesterolemia E78.00 Depression with anxiety F41.8 ADHD F90.9 Obesity E66.9
[2024-04-13 10:56] VITALS: BP 100/60; PULSE 81; RESP 12; TEMP 36.5; O2SAT 96; BMI 29.2
== END 2024-04-13 11:48 | disposition home or self-care (01) ==
PROVIDERS: PCP Family Medicine; Visit Provider Family Medicine
DX: E78.00 Pure hypercholesterolemia, unspecified (principal); F41.8 Other specified anxiety disorders; E66.9 Obesity, unspecified; Z68.29 Body mass index [BMI] 29.0-29.9, adult; F90.9 Attention-deficit hyperactivity disorder, unspecified type

== ENCOUNTER → 2024-04-13 10:38 | Outpatient (BNVA) | payer OTHER, SELFPAY | PROVIDERS: PCP Family Medicine; Visit Provider Family Medicine | DX: E78.00 Pure hypercholesterolemia, unspecified (principal); F41.8 Other specified anxiety disorders; F90.9 Attention-deficit hyperactivity disorder, unspecified type; E66.9 Obesity, unspecified; Z68.29 Body mass index [BMI] 29.0-29.9, adult; Z71.3 Dietary counseling and surveillance | CPT/HCPCS: 99212 ==

== ENCOUNTER 2024-08-22 08:32 | Outpatient (REF) | payer OTHER, SELFPAY ==
[2024-08-22 11:01] LABS: Influenza A PCR POSITIVE (Negative); Influenza B PCR NEGATIVE (Negative); Resp Syncy Virus RNA Qual PCR NEGATIVE (Negative); SARS COV2 PCR INHOUSE NEGATIVE (Negative)
== END 2024-08-22 08:33 | disposition home or self-care (01) ==
LOC: HO.LNP 08:32
PROVIDERS: PCP Family Medicine; Visit Provider Physician Assistant
DX: J11.1 Influenza due to unidentified influenza virus with other respiratory manifestations (principal)
CPT/HCPCS: 0241U

== ENCOUNTER 2025-04-24 09:44 | Outpatient (AMB) | payer OTHER, SELFPAY ==
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
[2025-04-24 09:54] VITALS: BP 105/68; PULSE 87; RESP 16; TEMP 36.8; O2SAT 100; BMI 23.8
== END 2025-04-24 10:38 | disposition home or self-care (01) ==
LOC: HO.HMCFM 09:45
PROVIDERS: PCP Family Medicine; Visit Provider Family Medicine
DX: F90.9 Attention-deficit hyperactivity disorder, unspecified type (principal); F41.8 Other specified anxiety disorders

== ENCOUNTER 2025-05-30 13:42 | Outpatient (REF) | payer OTHER, SELFPAY ==
[2025-05-30 18:32] LABS: Cannabinoid Screen Urine POSITIVE (Not Detect)
== END 2025-05-30 13:43 | disposition home or self-care (01) ==
LOC: HO.LAB 13:42
PROVIDERS: PCP Family Medicine; Visit Provider Family Medicine
DX: F90.9 Attention-deficit hyperactivity disorder, unspecified type (principal); F41.8 Other specified anxiety disorders; Z13.31 Encounter for screening for depression; Z13.39 Encounter for screening examination for other mental health and behavioral disorders
CPT/HCPCS: 80307; 96127

== ENCOUNTER 2025-05-30 13:42 | Outpatient (AMB) | payer OTHER, SELFPAY ==
--- NOTE | 2025-05-30 13:45 | A.OFFPC_ITS ---
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 Is last menstrual period known: No Post menopausal: No Patient : No Allergies No Known Allergies Allergy (Verified 05/30/25 13:48) Medication List - Last Reconciled 05/30/25 by Hieu Tobar MD clonidine HCl 0.1 mg PO Q8H 90 days dextroamphetamine-amphetamine 10 mg (Adderall) 10 mg PO DAILY 30 days dextroamphetamine-amphetamine 20 mg ER (Adderall XR) 20 mg PO QAM 30 days ibuprofen 800 mg PO Q8H PRN 30 days Tobacco use date assessed: 05/30/25 Dental Screening Dental Screen Date: 05/30/25 Did you have a dental visit in the last 12 months?: No Did you have a dental problem in the last 6 months where you did not have access to dental care?: No Was dental information given to patient?: No HPI f/u ADHD, anxiety/depression HPI Details 54 y/o female presents to f/u ADHD, anxi ety/depression. She is on Adderall. PHQ-9 9, CHERRY-7 8 today. Denies any issues with worsening anxiety, appetite changes. She feels she would be better with Adderall 30mg. Taking Adderall ER 20mg daily QAM and Adderall IR 10 early PM each day. Denies any difficulties with sleep. Notes hypersomnia and symptoms of apnea. [facility] Medical History Ectopic Cystocele with prolapse (~2014) Depression Anxiety ADHD Surgical History History of tonsillectomy (~1985) Social History Housing: Apartment Alcohol intake: current Alcohol intake frequency: a few times a week Patient Tobacco Use Status: Current everyday Tobacco user Tobacco use type: Cigarette Cigarettes Per Day: 5 e-Cigarette/Vaping Use: Never Used Second Hand Smoke Exposure: No service: No Current occupational status: unemployed Current occupational exposures/hazards: No Sexual orientation: Straight/Heterosexual Gender identity: Female Cognitive needs: No Hearing needs: No Vision needs: No Questionnaire PHQ-9 Over the last 2 weeks, how often have you been bothered by any of the following problems? 1. Little interest or pleasure in doing things: not at all 2. Feeling down, depressed, or hopeless: several days 3. Trouble falling or staying asleep, or sleeping too much: several days 4. Feeling tired or having little energy: several days 5. Poor appetite or overeating: several days 6. Feeling bad about yourself - or that you are a failure or have let yourself or your family down: several days 7. Trouble concentrating on things, such as reading the newspaper or watching television: nearly every day 8. Moving or speaking so slowly that other people could have noticed. Or the opposite - being so fidgety or restless that you have been moving around a lot more than usual: several days 9. Thoughts that you would be better off or of hurting yourself in some way: not at all Total score: 9 Depression Screening Interpretation: Positive Depression Screening Done: Yes [id number] - PHQ-9 Billing: Yes Source: Developed by Drs. Epifanio Gomez, Reena Willard, Federico Javier and colleagues, with an educational brendan from [employer] Thrive Questionnaire Date Thrive assessed: 04/24/25 I am a: Patient What is your living situation today?: I have a place to live, but I am worried about losing it in the future Within the past 12 months, did the food you bought not last and you didn't have the money to get more?: Sometimes True Within the past 12 months, did you worry whether your food would run out before you got money to buy more?: Often true Do you have trouble paying for medicines?: Yes Do you have trouble getting transportation to medical appointments?: No Do you have trouble paying your heating and electricity bill?: Yes Do you have trouble taking care of your child, family member or friend?: No Do you have trouble with day-to-day activities such as bathing, preparing meals, shopping, managing finances, etc.?: Yes Are you currently unemployed and looking for a job?: No Are you interested in more education?: No THRIVE Score: 4 CHERRY-7 AMB Questionnaire CHERRY-7 Date CHERRY - 7 assessed: 05/30/25 Feeling nervous, anxious, or on edge: 1 = Several days Not being able to stop or control worryin = More than half the days Worrying too much about different things: 1 = Several days Trouble relaxin = Several days Being so restless that it is hard to sit still: 0 = Not at all Becoming easily annoyed or irritable: 1 = Several days Feeling afraid as if something awful might happen: 2 = More than half the days Total CHERRY-7 score (0-4 normal; 5-9 mild; 10-14 moderate; 15-21 severe): 8 Source: Developed by Drs. Epifanio Gomez, Reena Willard, Federico Javier and colleagues, with an educational brendan from [employer] CHERRY-7 Assessment Billing CHERRY-7 Assessment Tool: CHERRY-7 Assessment 76242 Review of Systems Const Denies chills, Denies fatigue, Denies fever(s), Denies headache(s) and Denies weakness ENT Denies dizziness and Denies headache(s) Card Denies dyspnea Resp Denies cough, Denies dyspnea, Denies wheezing and Denies other (shortness of breath) Musc Denies numbness and Denies tingling Neuro Denies dizziness, Denies headache(s), Denies numbness, Denies tingling and Denies weakness Psych Denies anxiety and Denies depression Endo Denies fatigue Aller/Immun Denies wheezing Physical exam (Primary Care) Vital Signs: Last Vital Signs Temp 98.0 F 05/30/25 13:49 Pulse 81 05/30/25 13:49 Resp 16 05/30/25 13:49 BP 100/58 L 05/30/25 13:49 Pulse Ox 100 05/30/25 13:49 Oxygen Delivery Method Room Air 05/30/25 13:49 BMI result Body Mass Index 23.4 Tobacco/Smoking Status: Tobacco use Status Tobacco use date assessed 05/30/25 05/30/25 13:53 Patient Tobacco Use Status Current everyday Tobacco 05/30/25 13:45 Tobacco use type Cigarette 05/30/25 13:45 e-Cigarette/Vaping Use Never Used 05/30/25 13:45 PHQ-9: PHQ-9 Score PHQ-9: Total score 9 05/30/25 14:05 Depression Screening Interpretation: Positive Thrive Assessment: Date of Thrive Assessment Date Thrive assessed 04/24/25 05/30/25 13:45 Const General: well developed; No acute distress Nutritional Appearance: well nourished Orientation/consciousness: patient oriented x3 HENMT Head: Yes normocephalic and Yes atraumatic Eyes General: appearance normal, both eyes and all related structures Pupils: Equal, round and reactive pupils present EOM: EOMs intact bilaterally Resp Effort & Inspection: normal respiratory effort Neuro General: patient oriented x3 and gait normal Cranial nerves: Yes Equal, round and reactive pupils present Psych Affect: normal affect Coding Level of Care Code Est Pt Level 5 (01290) Diagnoses Depression with anxiety F41.8 ADHD F90.9 Hypersomnia G47.10 Change in vision H53.9 Glare sensitivity H53.71 Diminished night vision H53.69 Additional Codes CHERRY-7 Assessment Billing - CHERRY-7 Assessment Tool: CHERRY-7 Assessment 17548 ([id number]) PHQ-9 - 98265 - PHQ-9 Billing: Yes ([id number]) Assessment & Plan Assessment & Plan (1) Depression with anxiety: Code(s): F41.8 - Other specified anxiety disorders Category: Medical Plan: Worsening depression and anxiety and this seems to be exacerbated by long hours at work. She has history of PTSD as well. [place] [facility] [place]. She has not had an appointment yet but I have given her the phone number. 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 Will make a letter for her today. (2) ADHD: Code(s): F90.9 - Attention-deficit hyperactivity disorder, unspecified type Category: Medical Plan: Patient notes that her medication is helpful but thinks she could get better efficacy from Adderall XR 30 mg once daily rather than her current regimen of Adderall ER 20 mg q.a.m. and Adderall IR 10 mg in late morning. Will have her follow-up with [facility] [place] to help optimize her medications. I am willing to continue managing thereafter. Checking UDS & amphetamine by GCMS today (3) Hypersomnia: Code(s): G47.10 - Hypersomnia, unspecified Category: Medical Plan: Referred to Sleep Medicine (4) Change in vision: Code(s): H53.9 - Unspecified visual disturbance Category: Medical (5) Glare sensitivity: Code(s): H53.71 - Glare sensitivity Category: Medical (6) Diminished night vision: Code(s): H53.69 - Other night blindness Category: Medical Plan Pt here to f/u ADHD and Anxiety/Depression. Taking Adderall ER 20mg daily QAM and Adderall IR 10 early PM each day. No problems with Appetitie, Worsened Anxiety or Difficulty Sleeping from the medication. At last visit, we discussed that she has missed several visits will need to be seen frequently. Also, due for UDS. Worsened anxiety/depression and had referred her to [facility] [place]. Will ask office to check on status of referral. Decreased vision at night and glare sensitivity. Referring her to Ophthalmology Orders: Orders Amphetamine by GC/MS 05/30/25 F90.9 - Attention-deficit hyperactivity disorder, unspecified type Referrals Sleep Medicine Referral G47.10 - Hypersomnia, unspecified Ophthalmology Referral H53.69 - Other night blindness, H53.71 - Glare sensitivity, H53.9 - Unspecified visual disturbance
[2025-05-30 13:49] VITALS: BP 100/58; PULSE 81; RESP 16; TEMP 36.7; O2SAT 100; BMI 23.4
== END 2025-05-30 14:23 | disposition home or self-care (01) ==
LOC: HO.HMCFM 13:43
PROVIDERS: PCP Family Medicine; Visit Provider Family Medicine
DX: F41.8 Other specified anxiety disorders (principal); F90.9 Attention-deficit hyperactivity disorder, unspecified type; G47.10 Hypersomnia, unspecified; H53.9 Unspecified visual disturbance; H53.71 Glare sensitivity; H53.69 Other night blindness